=== PATIENT | female | born 1960 | race African-American/Black ===

== ENCOUNTER 2022-12-07 22:39 | Emergency (ER) | payer MEDICAID, OTHER ==
[~2022-12-07] VITALS: Ht 157.5 cm; Wt 51.5 kg
[2022-12-07 23:25] VITALS: BP 145/89; O2SAT 98
[2022-12-08] MEDS ORDERED: LIDOCAINE 5% PATCH TOP SCH (02:30)
[2022-12-08] MEDS ORDERED: ACETAMINOPHEN 325MG TABLET PO ONE (02:30)
[2022-12-08] MEDS ORDERED: NAPR-1176 MT (03:12)
[2022-12-08] MEDS ORDERED: CYCL5TAB MT (03:12)
[2022-12-08] MEDS ORDERED: LIDO700A15 TP (03:12)
[2022-12-08 03:44] VITALS: PULSE 96; RESP 16; TEMP 98
== END 2022-12-08 03:57 | disposition home or self-care (01) ==
LOC: ER 22:39
DX: M54.50 Low back pain, unspecified (principal)
CPT/HCPCS: 99283